=== PATIENT | male | born 1985 ===

== ENCOUNTER 2018-09-21 09:32 | Emergency (ER) | payer OTHER ==
[2018-09-21 09:42] VITALS: BP 119/64
--- NOTE | 2018-09-21 10:16 | UC ---
Skin Complaint HPI - HPI Summary HPI Summary: Pt presents with c/o of laceration to left anterior knee after [place]. Pt states that he cleaned wound s/p falling but is concerned about infection. Pt last tetanus in 2013 - History of Current Complaint Chief Complaint: UCLowerExtremity Time Seen by Provider: 09/21/18 10:01 Stated Complaint: L LEG INJURY Hx Obtained From: Patient Onset/Duration: Sudden Onset, Still Present Skin Exposure Onset/Duration: Hours Ago - 24 Timing: Constant Onset Severity: Moderate Current Severity: Mild Pain Intensity: 0 Location: Discrete - left mid anterior knee Aggravating Factor(s): Touch Alleviating Factor(s): Other - movement Associated Signs & Symptoms: Positive: Tenderness Related History: Trauma - fall from standing - Allergy/Home Medications Allergies/Adverse Reactions: Allergies Allergy/AdvReac Type Severity Reaction Status Date / Time benzonatate Allergy Itching Verified 09/21/18 09:43 [From Sherry Mackay] doxycycline Allergy Hives Verified 09/21/18 09:43 Home Medications: Home Medications Fluticasone Propionate [Flonase Allergy Relief] 50 mcg NA 09/21/18 [History] PMH/Surg Hx/FS Hx/Imm Hx Previously Healthy: Yes - Surgical History Surgical History: None - Family History Known Family History: Positive: Cardiac Disease - Social History Occupation: Employed Full-time Lives: With Family Alcohol Use: Occasionally Substance Use Type: None Smoking Status (MU): Never Smoked Tobacco Have You Smoked in the Last Year: No - Immunization History Hx Tetanus, Diphtheria Vaccination: Yes Vaccination Up to Date: Yes Review of Systems All Other Systems Reviewed And Are Negative: Yes Constitutional: Positive: Negative Skin: Positive: Other - laceration mid anteiror left knee ~ 3 cm length, and 3 mm wide Eyes: Positive: Negative ENT: Positive: Negative Respiratory: Positive: Negative Cardiovascular: Positive: Negative Gastrointestinal: Positive: Negative Genitourinary: Positive: Negative Motor: Positive: Negative Neurovascular: Positive: Negative Musculoskeletal: Positive: Negative, Myalgia Neurological: Positive: Negative Psychological: Positive: Negative Is Patient Immunocompromised?: No Physical Exam Triage Information Reviewed: Yes Appearance: Well-Appearing Vital Signs: Initial Vital Signs Temp 99.8 F 09/21/18 09:37 Pulse 63 09/21/18 09:37 Resp 18 09/21/18 09:37 BP 119/64 09/21/18 09:37 Pulse Ox 98 09/21/18 09:37 Vital Signs Reviewed: Yes Eye Exam: Normal ENT Exam: Normal Dental Exam: Normal Neck exam: Normal Respiratory Exam: Normal Musculoskeletal Exam: Normal Musculoskeletal: Positive: Strength Intact, ROM Intact Neurological Exam: Normal Psychological Exam: Normal Skin Exam: Other - laceration bleeding controlled, serous drainage. non tender, mild erythema Course/Dx - Differential Diagnoses - Skin Complaint Differential Diagnoses: Abscess, Other - laceration not repaired - Diagnoses Provider Diagnosis: Laceration of left knee Discharge - Sign-Out/Discharge Documenting (check all that apply): Patient Departure All imaging exams completed and their final reports reviewed: No Studies - Discharge Plan Condition: Stable Disposition: HOME Prescriptions: Cephalexin CAP* [Keflex 500 CAP*] 500 mg PO Q12H #14 cap Patient Education Materials: Laceration Without Closure (ED) Referrals: [facility] [Outside] - As Soon As Possible No Primary Care Phys,NOPCP [Primary Care Provider] - Additional Instructions: Please monitor for worsening signs of infection that include but are not limited to: increased redness, purulent discharge, fever, tenderness, and red streaking. - Billing Disposition and Condition Condition: STABLE Disposition: Home
== END 2018-09-21 10:31 | disposition home or self-care (01) ==
LOC: UCEAST 09:32
DX: S81.012A Laceration without foreign body, left knee, initial encounter (principal); Z88.8 Allergy status to other drugs, medicaments and biological substances; Z88.1 Allergy status to other antibiotic agents; W22.03XA Walked into furniture, initial encounter; Y93.02 Activity, running; Y92.9 Unspecified place or not applicable
CPT/HCPCS: 99202; G0463